=== PATIENT | female | born 1990 | race Caucasian/White ===

== ENCOUNTER → 2022-12-05 12:01 | Outpatient (BNVA) | payer BC, SELFPAY | PROVIDERS: PCP Nurse Practitioner Family; Visit Provider Nurse Practitioner Family | DX: R73.9 Hyperglycemia, unspecified (principal) | CPT/HCPCS: 83036 ==

== ENCOUNTER 2022-12-06 14:12 | Emergency (ER) | payer BC, SELFPAY ==
[2022-12-06] VITALS (8 sets, daily range): BP systolic 114–145; BP diastolic 51–81; PULSE 81–91; RESP 16–18; TEMP 36.8; O2SAT 97–99
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
--- NOTE | 2022-12-06 15:00 | PC.NURSE ---
DAMP TELFA DRESSING APPLIED TO RIGHT LEG WOUND PER VERBAL ORDER OF ED PHYSICIAN
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
[2022-12-06] MEDS: HYDROcodone-acetaminophen 5-325 mg Tablet 1 TAB PO (15:58)
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
[2022-12-06 17:46] LABS: Basophils % 0.4 %; Eosinophils # 0.1 10^3/uL (0.0-0.8); Eosinophils % 2.4 %; Hematocrit 28.8 % (37.0-47.0); Lymphocytes # 0.3 10^3/uL (0.8-4.8); Lymphocytes % 6.5 %; Mean Corpuscular HGB Conc 31.3 g/dL (30.0-36.0); Mean Corpuscular Hemoglobin 29.3 pg (28.0-34.0); Mean Corpuscular Volume 93.8 fl (81-99); Mean Platelet Volume 10.3 fL (7.4-10.4); Monocytes # 0.4 10^3/uL (0.2-0.9); Monocytes % 7.9 %; Neutrophils # 4.04 10^3/uL (1.8-7.7); Neutrophils % 82.2 %; Nucleated Red Blood Cells % 0 %; Platelet Count 250 10^3/cmm (130-400); Red Blood Count 3.07 10^6/uL (4.1-5.3); Red Cell Distribution Width 13.6 % (12.1-15.1); White Blood Count 4.9 10^3/uL (4.0-10.0)
[2022-12-06] MEDS: iohexol 350 mg/mL 500 mL Btl (per mL) IV ×2 (17:49→17:50)
[2022-12-06 18:13] LABS: Blood Urea Nitrogen 11 mg/dL (6-20); C Reactive Protein 15.3 mg/L (0.0-4.9); Calcium 8.3 mg/dL (8.5-10.5); Carbon Dioxide 23 mmol/L (22-29); Chloride 107 mmol/L (98-107); Creatinine Clr Calc Pharmacy 208.3933; Glomerular Filtration Rate 141.2 mL/min (90-130); Glucose 92 mg/dL (65-115); Osmolality Calculated 289 mOsm/kg (285-295); Sodium 140 mmol/L (136-145)
[2022-12-06] MEDS: HYDROmorphone 1 mg/mL INJ 1 mL IVP (19:10)
== END 2022-12-06 20:26 | disposition home or self-care (01) ==
PROVIDERS: Family Medicine; Emergency Provider Emergency Medicine; PCP Nurse Practitioner Family
DX: R60.0 Localized edema (principal); S81.801A Unspecified open wound, right lower leg, initial encounter; V09.00XA Pedestrian injured in nontraffic accident involving unspecified motor vehicles, initial encounter; Z87.891 Personal history of nicotine dependence
CPT/HCPCS: 36415; 73701; 80048; 85025; 86140; 93970; 96374; 99285; J1170; Q9967

== ENCOUNTER 2023-02-18 06:00 | Outpatient (RCR) | payer BC, SELFPAY | END 2023-02-18 23:59 | disposition home or self-care (01) | LOC: GPT 06:00 | PROVIDERS: Visit Provider Physician Assistant Surgical | DX: S97.02XD Crushing injury of left ankle, subsequent encounter (principal); X58.XXXD Exposure to other specified factors, subsequent encounter | CPT/HCPCS: 97110; 97140; 97162 ==

== ENCOUNTER 2023-02-19 06:00 | Outpatient (RCR) | payer BC, SELFPAY | END 2023-03-21 23:59 | disposition home or self-care (01) | LOC: GPT 06:00 | PROVIDERS: Visit Provider Physician Assistant Surgical | DX: S97.02XD Crushing injury of left ankle, subsequent encounter (principal); X58.XXXD Exposure to other specified factors, subsequent encounter | CPT/HCPCS: 97110; 97112; 97140 ==

== ENCOUNTER 2023-02-19 10:59 | Outpatient (RCR) | payer BC, SELFPAY | END 2023-03-12 23:59 | disposition home or self-care (01) | LOC: GOT 10:59 | PROVIDERS: Visit Provider Internal Medicine | DX: I89.0 Lymphedema, not elsewhere classified (principal) | CPT/HCPCS: 97140; 97166 ==

== ENCOUNTER 2023-03-22 06:00 | Outpatient (RCR) | payer BC, SELFPAY | END 2023-04-20 23:59 | disposition home or self-care (01) | LOC: GPT 06:00 | PROVIDERS: Visit Provider Physician Assistant Surgical | DX: S97.02XD Crushing injury of left ankle, subsequent encounter (principal); X58.XXXD Exposure to other specified factors, subsequent encounter | CPT/HCPCS: 97110; 97112; 97140 ==

== ENCOUNTER 2023-04-17 06:00 | Outpatient (RCR) | payer BC, SELFPAY | END 2023-04-20 23:59 | disposition home or self-care (01) | LOC: GPT 06:00 | PROVIDERS: Visit Provider Internal Medicine | DX: M54.50 Low back pain, unspecified (principal) | CPT/HCPCS: 97140; 97162 ==

== ENCOUNTER 2023-04-21 06:00 | Outpatient (RCR) | payer BC, SELFPAY | END 2023-05-21 23:59 | disposition home or self-care (01) | LOC: GPT 06:00 | PROVIDERS: Visit Provider Physician Assistant Surgical | DX: M54.50 Low back pain, unspecified (principal) | CPT/HCPCS: 97110; 97112; 97140; 97164; 97530 ==

== ENCOUNTER 2023-04-21 06:00 | Outpatient (RCR) | payer BC, SELFPAY | END 2023-05-21 23:59 | disposition home or self-care (01) | LOC: GPT 06:00 | PROVIDERS: Visit Provider Internal Medicine | DX: M54.50 Low back pain, unspecified (principal) | CPT/HCPCS: 97110; 97112; 97140 ==

== ENCOUNTER 2023-05-22 06:00 | Outpatient (RCR) | payer BC, SELFPAY | END 2023-06-20 23:59 | disposition home or self-care (01) | LOC: GPT 06:00 | PROVIDERS: Visit Provider Internal Medicine | DX: M54.50 Low back pain, unspecified (principal) | CPT/HCPCS: 97110; 97140 ==

== ENCOUNTER 2023-05-22 06:00 | Outpatient (RCR) | payer BC, SELFPAY | END 2023-06-20 23:59 | disposition home or self-care (01) | LOC: GPT 06:00 | PROVIDERS: Visit Provider Physician Assistant Surgical | DX: S97.02XD Crushing injury of left ankle, subsequent encounter (principal); X58.XXXD Exposure to other specified factors, subsequent encounter | CPT/HCPCS: 97110; 97112; 97140 ==

== ENCOUNTER 2023-06-21 06:00 | Outpatient (RCR) | payer BC, SELFPAY | END 2023-07-21 23:59 | disposition home or self-care (01) | LOC: GPT 06:00 | PROVIDERS: Visit Provider Physician Assistant Surgical | DX: S97.02XD Crushing injury of left ankle, subsequent encounter (principal); X58.XXXD Exposure to other specified factors, subsequent encounter | CPT/HCPCS: 97110; 97112 ==

== ENCOUNTER → 2023-09-24 16:32 | Outpatient (BNVA) | payer BC, SELFPAY | PROVIDERS: PCP Nurse Practitioner Family; Visit Provider Nurse Practitioner Family | DX: G35 Multiple sclerosis (principal); D84.821 Immunodeficiency due to drugs; R93.89 Abnormal findings on diagnostic imaging of other specified body structures; Z79.899 Other long term (current) drug therapy | CPT/HCPCS: 80053; 85025 ==

== ENCOUNTER → 2023-09-30 10:58 | Outpatient (BNVA) | payer BC, SELFPAY | PROVIDERS: PCP Nurse Practitioner Family; Visit Provider Nurse Practitioner Family | DX: S62.635A Displaced fracture of distal phalanx of left ring finger, initial encounter for closed fracture (principal); X58.XXXA Exposure to other specified factors, initial encounter | CPT/HCPCS: 73130 ==

== ENCOUNTER → 2023-10-15 12:54 | Outpatient (BNVA) | payer BC, SELFPAY | PROVIDERS: PCP Nurse Practitioner Family; Referring Provider Nurse Practitioner Family; Visit Provider Student in an Organized Health Care Education/Training Program | DX: M20.012 Mallet finger of left finger(s) | CPT/HCPCS: 73130 ==

== ENCOUNTER → 2024-03-26 09:10 | Outpatient (BNVA) | payer OTHER, SELFPAY | PROVIDERS: PCP Nurse Practitioner Family; Visit Provider Nurse Practitioner Family | DX: Z00.00 Encounter for general adult medical examination without abnormal findings (principal); E53.8 Deficiency of other specified B group vitamins; E74.39 Other disorders of intestinal carbohydrate absorption | CPT/HCPCS: 80053; 80061; 82306; 82607; 83036; 84443; 85007; 85027 ==

== ENCOUNTER → 2024-06-15 09:38 | Outpatient (BNVA) | payer OTHER, SELFPAY | PROVIDERS: PCP Nurse Practitioner Family; Visit Provider Nurse Practitioner Family | DX: R05.9 Cough, unspecified (principal); R06.02 Shortness of breath | CPT/HCPCS: 71046; 80053; 85025; 86140 ==

== ENCOUNTER → 2024-09-22 08:45 | Outpatient (BNVA) | payer OTHER, SELFPAY | PROVIDERS: PCP Nurse Practitioner Family; Visit Provider Nurse Practitioner Family | DX: G35 Multiple sclerosis (principal); D84.821 Immunodeficiency due to drugs; Z79.899 Other long term (current) drug therapy | CPT/HCPCS: 80076; 85025 ==

== ENCOUNTER 2024-11-19 13:31 | Outpatient (CLI) | payer OTHER, SELFPAY | END 2024-11-19 13:32 | disposition home or self-care (01) | LOC: SLEEP 13:32 | PROVIDERS: PCP Nurse Practitioner Family; Visit Provider Nurse Practitioner Family | DX: G47.33 Obstructive sleep apnea (adult) (pediatric) (principal) | CPT/HCPCS: G0399 ==

== ENCOUNTER → 2025-01-27 08:07 | Outpatient (BNVA) | payer OTHER, SELFPAY | PROVIDERS: PCP Family Medicine; Visit Provider Family Medicine | DX: R79.89 Other specified abnormal findings of blood chemistry (principal); R73.9 Hyperglycemia, unspecified; G43.009 Migraine without aura, not intractable, without status migrainosus; G35 Multiple sclerosis; F41.1 Generalized anxiety disorder | CPT/HCPCS: 80053; 80061; 82306; 82607; 82746; 83540; 83721; 83735; 84439; 84443; 85025; 85651; 86140 ==

== ENCOUNTER 2025-02-18 08:00 | Oncology outpatient (recurring) (ONCR) | payer OTHER, SELFPAY ==
[2025-02-17 13:03] VITALS: BP 114/71; PULSE 69; RESP 18; TEMP 36.1; O2SAT 97
== END 2025-02-18 23:59 | disposition home or self-care (01) ==
PROVIDERS: PCP Nurse Practitioner Family; Visit Provider Specialist
DX: Z53.9 Procedure and treatment not carried out, unspecified reason (principal); G35 Multiple sclerosis; Z79.899 Other long term (current) drug therapy
CPT/HCPCS: 96365; J2919; J7050

== ENCOUNTER → 2025-03-03 09:15 | Outpatient (BNVA) | payer OTHER, SELFPAY | PROVIDERS: PCP Family Medicine; Visit Provider Family Medicine | DX: R10.10 Upper abdominal pain, unspecified (principal); K92.1 Melena; K52.9 Noninfective gastroenteritis and colitis, unspecified | CPT/HCPCS: 80053; 82150; 83993; 84443; 85025; 85651 ==

== ENCOUNTER 2025-03-12 08:00 | Oncology outpatient (recurring) (ONCR) | payer OTHER, SELFPAY ==
--- NOTE | 2025-03-12 08:00 | MR_ITS ---
WS: [id number] MR CERVICAL SPINE WO/W COMPARISON: Outside study 2019 HISTORY: G35 - Multiple sclerosis TECHNIQUE: Sagittal T1, T2 and T2 inversion recovery; axial T2, T2 gradient and fiesta. Post gadolinium imaging with fat saturation technique. FINDINGS:Straightening of the normal cervical lordosis. No high grade central canal narrowing. No visualized demyelinating lesions in the cervical cord. No cord atrophy. No abnormal gadolinium enhancement. C2-3: Spinal canal and foramen are patent. C3-4: Spinal canal and foramen are patent. C4-5: Mild facet arthropathy. Mild RIGHT bony foraminal narrowing. C5-6: Mild disc bulging. Mild facet arthropathy. Spinal canal and foramen are patent. C6-7: Spinal canal and foramen are patent. C7-T1: Spinal canal and foramen are patent. MR/MR cervical spine wo/w [id number] IMPRESSION: 1. No visualized demyelinating lesions in the cervical cord. 2. No cord atrophy. 3. No abnormal gadolinium enhancement.
--- NOTE | 2025-03-12 08:45 | MR_ITS ---
WS: [id number] MRI THORACIC SPINE WITH CONTRAST TECHNIQUE: Sagittal T1, T2 and STIR imaging. Axial T2 imaging. Post gadolinium imaging was obtained. CLINICAL INFORMATION: R32 - Unspecified urinary incontinence COMPARISON: Outside MRI 2018 FINDINGS: Normal thoracic alignment. No acute compression. No high-grade central canal stenosis. Cord signal is normal. No cord atrophy. No demyelinating lesions in the thoracic cord. No abnormal gadolinium enhancement. Small hemangioma RIGHT hepatic lobe measuring 10 mm. No other acute findings. MR/MR thoracic spine wo/w [id number] IMPRESSION: No acute findings.
[2025-03-12] MEDS: gadobenate dimeglumine 20 mL vial IV (09:07)
--- NOTE | 2025-03-12 09:30 | MR_ITS ---
WS: [id number] MRI HEAD WITH CONTRAST TECHNIQUE: Sagittal T1, T2 axial, T2 axial FLAIR, axial susceptibility weighted imaging, axial diffusion weighted images, and coronal T2 images were obtained. Pre and post-T1 axial and post T1 coronal images. ADC and FSPGR images. CLINICAL INFORMATION: G43.009 - Migraine without aura, not intractable, without... COMPARISON: Outside MRI 2018 and 2019 FINDINGS: No evidence of restricted diffusion to suggest acute ischemia. Mild patchy supratentorial white matter changes compatible with history of demyelinating disease. This appears stable since 2019. No significant parenchymal volume loss. No enhancing lesions to indicate active disease. No significant atrophy of the corpus callosum. No significant T1 hypointense lesion load. Normal vascular flow voids at the skull base. No extra-axial fluid collections. Paranasal sinuses and mastoid air cells are well aerated. No other acute findings. MR/MR head wo/w con [id number] IMPRESSION: 1. Mild patchy supratentorial white matter changes compatible with history of demyelinating disease. Overall no significant changes in disease burden compare d to 2019. No significant disease progression. 2. No abnormal gadolinium enhancement to indicate active disease. 3. No significant parenchymal volume loss. 4. No significant T1 hypointense lesion load.
== END 2025-03-21 23:59 | disposition home or self-care (01) ==
LOC: ONCMED 09:45 → RAD 03-13 → ONCMED 03-15 09:49
PROVIDERS: PCP Nurse Practitioner Family; Visit Provider Specialist
DX: G35 Multiple sclerosis (principal); G43.009 Migraine without aura, not intractable, without status migrainosus; E03.9 Hypothyroidism, unspecified; R32 Unspecified urinary incontinence; R33.9 Retention of urine, unspecified; R93.0 Abnormal findings on diagnostic imaging of skull and head, not elsewhere classified; D18.09 Hemangioma of other sites; M47.892 Other spondylosis, cervical region; M50.321 Other cervical disc degeneration at C4-C5 level; M50.322 Other cervical disc degeneration at C5-C6 level; Z53.9 Procedure and treatment not carried out, unspecified reason
CPT/HCPCS: 70553; 72156; 72157; 96365; J2919; J7050

== ENCOUNTER → 2025-03-30 11:08 | Outpatient (BNVA) | payer OTHER, SELFPAY | PROVIDERS: PCP Nurse Practitioner Family; Visit Provider Family Medicine | DX: K31.84 Gastroparesis (principal); K92.1 Melena; K52.9 Noninfective gastroenteritis and colitis, unspecified; R10.9 Unspecified abdominal pain; G89.29 Other chronic pain | CPT/HCPCS: 82785; 86001; 86003; 86008 ==

== ENCOUNTER → 2025-03-31 08:17 | Day surgery (SDC) | payer OTHER, SELFPAY ==
[2025-03-31 10:27] VITALS: BP 135/87; PULSE 78; RESP 18; TEMP 36.1; O2SAT 97; BMI 36.1
[2025-03-31 10:44] LABS: OR HCG Qualitative Urine Negative (Negative)
== END ==
LOC: GILAB 08:19
PROVIDERS: Student in an Organized Health Care Education/Training Program; PCP Family Medicine; Visit Provider Student in an Organized Health Care Education/Training Program
PROC: 0DJ08ZZ Inspection of Upper Intestinal Tract, Via Natural or Artificial Opening Endoscopic (ICD-10-PCS; principal; 2025-03-31 12:00)
PROC: 0DJD8ZZ Inspection of Lower Intestinal Tract, Via Natural or Artificial Opening Endoscopic (ICD-10-PCS; CPT 45378; 2025-03-31 12:00)
DX: Z01.818 Encounter for other preprocedural examination (principal)
CPT/HCPCS: 81025

== ENCOUNTER 2025-04-08 08:01 | Oncology outpatient (recurring) (ONCR) | payer OTHER, SELFPAY ==
[2025-03-25] MEDS: diphenhydrAMINE 50 mg/mL SDV 1mL 25 MG IVP (09:20)
[2025-03-25] MEDS: methylPREDNISolone sod succ 125 mg/2 mL INJ IVP (09:24)
[2025-03-25 10:25] VITALS: BP 106/62; PULSE 71; RESP 16; TEMP 36; O2SAT 99
[2025-03-25 11:57] VITALS: BP 112/67; PULSE 75; RESP 16; TEMP 36.9; O2SAT 96
[2025-03-25 12:30] VITALS: BP 107/63; PULSE 79; RESP 16; TEMP 36.6; O2SAT 97
[2025-03-25 13:00] VITALS: BP 113/68; PULSE 79; RESP 16; TEMP 36.8; O2SAT 95
[2025-03-25 13:32] VITALS: BP 113/68; PULSE 79; RESP 18; TEMP 36.1; O2SAT 99
--- NOTE | 2025-03-31 07:22 | US_ITS ---
WS: [id number] Complete ABDOMINAL ULTRASOUND HISTORY: R10.10 - Upper abdominal pain, unspecified COMPARISON: None available. Liver: 19.0 cm in length. Liver is mildly enlarged with coarse echotexture. No mass. No intrahepatic duct dilatation. Portal Vein: Normal hepatopetal flow with monophasic waveform. Gallbladder: Normally distended gallbladder with no stones or wall thickening. CBD: 0.4 cm Pancreas: Normal size and echogenicity. Right kidney: 11.7 cm x 4.8 x 4.7 cm. Cortex:1.1 cm. Normal size and echogenicity. No hydronephrosis or mass. Left kidney: 11.2 cm x 6.6 cm x 6.4 cm. Cortex: 1.0 cm. Normal size and echogenicity. No hydronephrosis or mass. Spleen: 12.1 cm. Normal size and echogenicity. Aorta and IVC: Unremarkable abdominal aorta and IVC. US/US abdomen complete* [id number] Impression: 1. Normal gallbladder. 2. Mild hepatic steatosis and hepatomegaly. 3. No renal obstruction.
[2025-04-08 08:24] VITALS: BP 116/73; PULSE 89; RESP 16; TEMP 36.7; O2SAT 98
[2025-04-08] MEDS: diphenhydrAMINE 50 mg/mL SDV 1mL 25 MG IVP (08:54)
[2025-04-08] MEDS: methylPREDNISolone sod succ 125 mg/2 mL INJ IVP (09:02)
[2025-04-08 10:15] VITALS: BP 130/81; PULSE 78; RESP 16; TEMP 36.7; O2SAT 96
[2025-04-08 10:45] VITALS: BP 118/66; PULSE 75; RESP 16; TEMP 36.7; O2SAT 97
[2025-04-08 11:15] VITALS: BP 107/69; PULSE 76; RESP 16; TEMP 36.8; O2SAT 95
[2025-04-08 13:12] VITALS: BP 97/63; PULSE 82; RESP 16; TEMP 37; O2SAT 95
== END 2025-04-20 23:59 | disposition home or self-care (01) ==
PROVIDERS: PCP Nurse Practitioner Family; Visit Provider Specialist
DX: Z53.9 Procedure and treatment not carried out, unspecified reason
CPT/HCPCS: 76700; 96375; 96413; 96415; A4222; J1200; J2350; J2919; J7050; J9999

== ENCOUNTER 2025-04-19 07:07 | Day surgery (SDC) | payer OTHER, SELFPAY ==
[2025-04-19 07:23] VITALS: BP 138/79; PULSE 87; RESP 18; TEMP 36.2; O2SAT 97
[2025-04-19 07:24] VITALS: BMI 36.1
[2025-04-19 07:37] LABS: OR HCG Qualitative Urine Negative (Negative)
--- NOTE | 2025-04-19 07:52 | ANES.PREANE2 ---
Pre-Anesthetic Assessment Height/Weight: Height 1.75 m Weight 111.13 kg Temp Pulse Resp BP Pulse Ox O2 Del Method 97.1 F L 87 18 138/79 97 Room Air 04/19/25 07:23 04/19/25 07:23 04/19/25 07:23 04/19/25 07:23 04/19/25 07:23 04/19/25 07:23 Operation Date: 04/19/25 08:15 Proposed Procedures p EGD EGD with Biopsy [id number] K92.1 R12(Not Applicable) - Jason Howe MD s Colonoscopy(Not Applicable) - Jason Howe MD Familial anesthetic complications: none Last intake: Intake Last Liquid Date 04/18/25 Last Liquid Time 21:00 Last Solid Date 04/17/25 Social No alcohol and No tobacco Exam alert, oriented x 3, clear to auscultation bilaterally and regular rate & rhythm Airway Submandibular: within normal limits Cervical ROM: within normal limits Mallampati: Class I History/ROS No significant history except as noted Pulmonary None reported CV/HEM None reported None reported Hepatic None reported GI None reported Metabolic Morbid Obesity and Thyroid Disease (hypo) [facility] [place] [place] Neuropsych None reported Anesthetic Plan ASA status: 3 Anesthesia: MAC Risk of > 500 ml blood loss (7ml/kg in children): No Medications/Allergies Home Medications ?Medication ?Instructions ?Recorded ?Confirmed ?Last Taken ?Type cetirizine 10 mg tablet 10 mg PO DAILY PRN Allergy Symptoms 12/03/22 04/14/25 04/17/25 History sucralfate 1 gram tablet 1 g PO BID 12/03/22 04/14/25 04/18/25 History cholecalciferol (vitamin D3) 50 See Rx Instructions PO DAILY 12/05/22 04/14/25 04/17/25 History mcg (2,000 unit) tablet baclofen 10 mg tablet 20 mg (2 x 10 mg) PO .AM #30 tabs 10/06/24 04/14/25 04/17/25 Rx gabapentin 300 mg capsule 600 mg (2 x 300 mg) PO .AM #90 caps 10/06/24 04/14/25 04/17/25 Rx triamterene 75 1 tab PO DAILY 01/27/25 04/14/25 04/17/25 History mg-hydrochlorothiazide 50 mg tablet clonazepam 1 mg tablet 1 mg PO DAILY PRN Anxiety, 03/01/25 04/14/25 04/17/25 Rx insomnia #30 tabs ocrelizumab 30 mg/mL intravenous 600 mg (20 mL) IV .[id number] #20 mL 03/16/25 04/19/25 03/30/25 Rx solution (Ocrevus) atorvastatin 20 mg tablet 20 mg PO DAILY 90 days #90 tabs 03/24/25 04/14/25 04/17/25 Rx sertraline 100 mg tablet 150 mg (1.5 x 100 mg) PO DAILY 03/24/25 04/14/25 04/17/25 Rx #135 tabs pantoprazole 40 mg tablet,delayed 40 mg PO DAILY 90 days #90 tabs 03/31/25 04/14/25 04/17/25 Rx release (Protonix) hydrocodone 5 mg-acetaminophen 325 1 tab PO Q6H PRN pain 5 days #20 04/02/25 04/14/25 04/17/25 Rx mg tablet tabs peg 3350-electrolytes 236 240 ml PO Q10M #4,000 mL 04/02/25 04/14/25 04/18/25 Rx gram-22.74 gram-6.74 gram-5.86 gram solution (Golytely) levothyroxine 50 mcg tablet 50 mcg PO DAILY #90 tabs 04/14/25 04/19/25 04/18/25 Rx (Euthyrox) Allergies Allergy/AdvReac Type Severity Reaction Status Date / Time No Known Drug Allergies Allergy Unknown Unknown Verified 04/19/25 07:20 Current Medications Generic Name Dose Route Start Last Admin Trade Name Freq PRN Reason Stop Dose Admin Sodium Chloride 1,000 mls @ 15 mls/hr 04/19/25 07:12 04/19/25 07:34 Sodium Chloride 0.9% IV 04/20/25 07:11 15 mls/hr .Q24H PRN Administration COLONOSCOPY FLUIDS PFSH Anesthesia Medical History (Updated 04/16/25 @ 06:12 by Quinn Ramos DO) Gastro-esophageal reflux disease without esophagitis Gastroparalysis Diverticulosis Psychiatric care Multiple sclerosis Social History Smoking and tobacco/nicotine status: former use of tobacco/nicotine Alcohol intake: current Substance/Drug Use: current Marital status: Highest education level completed: High School Graduate Current occupational status: employed Female Reproductive History Date of last menstrual period: 04/12/25
--- NOTE | 2025-04-19 08:00 | P.HP_ITS ---
Same Day Surgery H&P Indication for Procedure/HPI DATE OF PROCEDURE: April 19, 2025 CHIEF COMPLAINT/INDICATIONFOR SURGICAL PROCEDURE: hematochezia, heartburn PREOP DIAGNOSIS: hematochezia, heartburn PLANNED PROCEDURE: Operation Date: 04/19/25 08:15 Proposed Procedures p EGD EGD with Biopsy [id number] K92.1 R12(Not Applicable) - Jason randolph MD s Colonoscopy(Not Applicable) - Jason Howe MD Medications/Allergies* Home Medications ?Medication ?Instructions ?Recorded ?Confirmed ?Type cetirizine 10 mg tablet 10 mg PO DAILY PRN Allergy S ymptoms 12/03/22 04/14/25 History sucralfate 1 gram tablet 1 g PO BID 12/03/22 04/14/25 History cholecalciferol (vitamin D3) 50 See Rx Instructions PO DAILY 12/05/22 04/14/25 History mcg (2,000 unit) tablet triamterene 75 1 tab PO DAILY 01/27/2503/23 History mg-hydrochlorothiazide 50 mg tablet Allergies/Adverse Reactions Allergy/AdvReac Type Severity Reaction Status Date / Time No Known Drug Allergies Allergy Unknown Unknown Verified 04/19/25 07:20 Current Medications: Generic Name Dose Route Start Last Admin Trade Name Freq PRN Reason Stop Dose Admin Sodium Chloride 1,000 mls @ 15 mls/hr 04/19/25 07:12 04/19/25 07:34 Sodium Chloride 0.9% IV 04/20/25 07:11 15 mls/hr .Q24H PRN Administration COLONOSCOPY FLUIDS Pertinent History/Comorbid Conditions* Medical History (Updated 04/16/25 @ 06:12 by Quinn Ramos DO) Gastro-esophageal reflux disease without esophagitis Gastroparalysis Diverticulosis Psychiatric care Multiple sclerosis Social History Smoking and tobacco/nicotine status: former use of tobacco/nicotine Alcohol intake: current Substance/Drug Use: current Marital status: Highest education level completed: High School Graduate Current occupational status: employed Pertinent Exam Findings alert, oriented x 3, clear to auscultation bilaterally, regular rate & rhythm and procedure specific exam findings Recommendations Risks and benefits of procedure reviewed and Patient/family agree to proceed Surgery/Procedure today Other Plans: Patient understands there is about a 1% change of iatrogenic perforation, and also understands risks include aspiration. Still decides to proceed. Coding Level of Care Code Acute Code for Chg Fwd
[2025-04-19 08:22] VITALS: BP 170/147; PULSE 84; RESP 17; O2SAT 94
[2025-04-19 08:34] VITALS: BP 110/54; PULSE 84; RESP 17; O2SAT 94
--- NOTE | 2025-04-19 08:52 | ANE.PACU2 ---
Inpatient post-anesthesia follow up: Airway intact: Yes Vital signs: Temperature 97.1 F Pulse Rate 84 Respiratory Rate 17 Blood Pressure 110/54 Pulse Oximetry 94 Oxygen Delivery Me thod Room Air Oxygen Flow Rate Fraction of Inspir ed Oxygen Hydration adequate: Yes Nausea and vomiting: No Pain level: 1 Mental status: Baseline
== END 2025-04-19 08:52 | disposition home or self-care (01) ==
PROVIDERS: PCP Family Medicine; Visit Provider Student in an Organized Health Care Education/Training Program
PROC: 0DJ08ZZ Inspection of Upper Intestinal Tract, Via Natural or Artificial Opening Endoscopic (ICD-10-PCS; principal; 2025-04-19 08:15)
PROC: 0DJD8ZZ Inspection of Lower Intestinal Tract, Via Natural or Artificial Opening Endoscopic (ICD-10-PCS; CPT 45378; 2025-04-19 08:15)
DX: K92.1 Melena (principal); R12 Heartburn; K57.30 Diverticulosis of large intestine without perforation or abscess without bleeding; K64.1 Second degree hemorrhoids; K29.70 Gastritis, unspecified, without bleeding; K21.9 Gastro-esophageal reflux disease without esophagitis; K31.84 Gastroparesis; Z87.891 Personal history of nicotine dependence; E03.9 Hypothyroidism, unspecified; E66.01 Morbid (severe) obesity due to excess calories; Z68.36 Body mass index [BMI] 36.0-36.9, adult
CPT/HCPCS: 43239; 45378; 81025; 88305; J2250; J2704; J3010; J7030

== ENCOUNTER → 2025-05-31 14:17 | Outpatient (BNVA) | payer OTHER, SELFPAY | PROVIDERS: PCP Nurse Practitioner Family; Visit Provider Nurse Practitioner Women's Health | DX: Z12.4 Encounter for screening for malignant neoplasm of cervix (principal) | CPT/HCPCS: 87624 ==

== ENCOUNTER → 2025-06-10 08:32 | Outpatient (BNVA) | payer OTHER, SELFPAY | PROVIDERS: PCP Family Medicine; Visit Provider Family Medicine | DX: G35.D Multiple sclerosis, unspecified (principal) | CPT/HCPCS: 80076; 82085; 82384; 82550; 82565; 83497; 83520; 85025; 85651; 86140; 86160; 86162; 86200; 86235; 86255; 86376; 86431; 86812 ==

== ENCOUNTER → 2025-06-23 09:45 | Outpatient (BNVA) | payer OTHER, SELFPAY | PROVIDERS: PCP Family Medicine; Referring Provider Nurse Practitioner Family; Visit Provider Specialist | DX: G35.D Multiple sclerosis, unspecified (principal); R03.0 Elevated blood-pressure reading, without diagnosis of hypertension | CPT/HCPCS: 36415; 80503; 82040; 82042; 82164; 82784; 82945; 83916; 84157; 86592; 86812; 87070; 87075; 87205; 89050 ==

== ENCOUNTER → 2025-07-05 10:36 | Outpatient (BNVA) | payer OTHER, SELFPAY | PROVIDERS: PCP Family Medicine; Visit Provider Family Medicine | DX: J06.9 Acute upper respiratory infection, unspecified (principal) | CPT/HCPCS: 87400; 87420; 87426 ==